=== PATIENT | male | born 1965 | race Caucasian/White ===

== ENCOUNTER 2018-10-22 03:16 | Emergency (ER) | payer SELFPAY ==
[2018-10-22] MEDS ORDERED: Albuterol/Ipratropium 3.0-0.5 MG/3 ML Neb Soln ONE (03:25)
[2018-10-22] MEDS ORDERED: methylPREDNISolone Sodium Succinate 125 MG/2 ML SDV ONE (03:26)
[2018-10-22] MEDS ORDERED: methylPREDNISolone Sodium Succinate 125 MG/2 ML SDV IM ONE (03:36)
[2018-10-22] MEDS ORDERED: Albuterol/Ipratropium 3.0-0.5 MG/3 ML Neb Soln NEB ONE (03:37)
--- NOTE | 2018-10-22 17:32 | CR ---
EXAM DATE: 10/22/18 PATIENT'S AGE: 53 Patient: DOMINICK AMIN Facility: [facility] : 1965 Study: XRay-Chest -10/22/2018 4:33:45 AM Ordering Physician: Sancho Final Report: INDICATION: Pneumonia TECHNIQUE: Chest radiograph 1 view COMPARISON: None FINDINGS: Mediastinum: The mediastinum is normal in appearance. The heart silhouette is normal in size and morphology. Lung: Both lungs are unremarkable in appearance. The apices are difficult to evaluate due to the apical lordotic technique. No sign of pleural effusion seen. No pneumothorax is identified. Musculoskeletal: Unremarkable for age. IMPRESSION: 1. No acute cardiopulmonary disease is seen. Dictated by: Giovany Terry MD @ 10/22/2018 04:35:59 Signed by: Giovany Terry MD @10/22/2018 4:35:59 AM (Electronic Signature) Report Signed by Proxy. [facility]
== END 2018-10-22 05:00 | disposition home or self-care (01) ==
LOC: MW.ED 03:16
DX: J40 Bronchitis, not specified as acute or chronic (principal); J32.9 Chronic sinusitis, unspecified
CPT/HCPCS: 71045; 80305; 81001; 93005; 96372; 99285; J2930; J7620-GY